=== PATIENT | female | born 1965 | race African-American/Black ===

== ENCOUNTER 2022-05-07 09:58 | Outpatient (CLI) | payer OTHER | END 2022-05-07 09:59 | disposition home or self-care (01) | LOC: CSHWCC 09:58 | PROVIDERS: ATTEND Nurse Practitioner Family | DX: T81.89XD Other complications of procedures, not elsewhere classified, subsequent encounter (principal) | CPT/HCPCS: 97139; G0463; 99212 ==

== ENCOUNTER 2022-05-07 10:40 | Inpatient (IN) | payer OTHER ==
[~2022-05-07 10:40] MED LIST: Iopamidol 300 61% 100 ML VIAL FS ONE
[2022-05-07 11:26] LABS: #Eosinphils 0.1 10x3/uL (0.0-0.5); #Monocytes 1.2 10x3/uL (0.0-1.1); #Neutrophils 6.3 10x3/uL (1.5-8.4); %Basophils 0.2 % (0.0-2.0); %Eosinophils 0.7 % (0.0-6.0); %Lymphocytes 15.8 % (18.0-47.0); %Monocytes 13.3 % (0.0-10.0); %Neutrophils 69.1 % (40.0-75.0); Hemoglobin 8.6 g/dL (12.0-15.5); Mean Corpuscular HGB CONC 32.1 g/dL (32.0-36.0); Mean Corpuscular Volume 93.4 fl (81.6-98.3); Mean Platelet Volume 10.6 fl (7.4-10.4); Platelet Count 180 10x3/uL (150-450); RBC Distribution Width 16.4 % (11.5-14.5); Red Blood Cell (RBC) Count 2.87 10x6/uL (3.90-5.03); White Blood Cell (WBC) Count 9.1 10x3/uL (3.5-10.5)
[2022-05-07 11:43] LABS: INR-International Normal Ratio 1.1; PTT 27.9 sec (22.0-33.0); Prothrombin Time 11.6 sec (9.5-12.1)
[2022-05-07 11:47] LABS: ALT (SGPT) 8 U/L (8-55); AST (SGOT) 18 U/L (5-34); Albumin 2.7 g/dL (3.5-5.0); Alkaline Phosphatase 112 U/L (40-110); Anion Gap 20 mmol/L (10-20); BUN (Urea Nitrogen) 31 mg/dL (9.8-20.1); Bilirubin, Total 0.6 mg/dL (0.2-1.2); Calc. Creatinine Clearance 0 mL/min (70-130); Calcium 8.8 mg/dL (7.8-10.44); Carbon Dioxide 28 mmol/L (22-29); Chloride 96 mmol/L (98-107); Estimated GFR 6; Globulin 3.6 g/dL (2.4-3.5); Glucose 68 mg/dL (70-105); Lipase 10 U/L (8-78); Potassium 4.9 mmol/L (3.5-5.1); Protein, Total 6.3 g/dL (6.0-8.3); Sodium 139 mmol/L (136-145)
[2022-05-07] MEDS ORDERED: methylPREDNISolone Sod Succ 40 MG VIAL ONE (12:18)
[2022-05-07] MEDS ORDERED: Cefepime 1 GM VIAL ONE (12:18)
[2022-05-07] MEDS ORDERED: diphenhydrAMINE 50 MG/ML VIAL ONE (12:18)
[2022-05-07] MEDS ORDERED: Famotidine/PF 20 mg/2ml Vial ONE (12:19)
[2022-05-07] MEDS ORDERED: Vancomycin 1.5 GRAM/300 ML BAG 1.5 GM in Premix Bag 1 BAG IVPB SCH (13:15)
[2022-05-07] MEDS ORDERED: Metoprolol Tartrate 5 MG/5 ML VIAL ONE (15:20)
[2022-05-07] MEDS ORDERED: Calcium Carbonate 500 MG ChewTAB PO PRN (18:04)
[2022-05-07] MEDS ORDERED: Polyethylene Glycol 3350 17 GM Packet PO PRN (18:10)
[2022-05-07 18:46] LABS: Troponin I 0.069 ng/mL (< 0.028)
[2022-05-07] MEDS ORDERED: Digoxin 0.5 MG/2 ML AMP SLOW IVP SCH (21:15)
[2022-05-07] MEDS: Metoprolol Tartrate 25 MG TAB PO SCH (22:03)
[2022-05-07 22:34] LABS: Troponin I 0.063 ng/mL (< 0.028)
[2022-05-08 03:22] VITALS: BMI 31.4
[2022-05-08 06:43] LABS: #Monocytes 0.7 10x3/uL (0.0-1.1); #Neutrophils 6.4 10x3/uL (1.5-8.4); %Basophils 0.1 % (0.0-2.0); %Lymphocytes 18.2 % (18.0-47.0); %Monocytes 7.8 % (0.0-10.0); %Neutrophils 73.2 % (40.0-75.0); Hemoglobin 8.2 g/dL (12.0-15.5); Mean Corpuscular HGB CONC 31.9 g/dL (32.0-36.0); Mean Corpuscular Hemoglobin 29.4 pg (27.0-33.0); Mean Corpuscular Volume 92.1 fl (81.6-98.3); Mean Platelet Volume 11.2 fl (7.4-10.4); Platelet Count 215 10x3/uL (150-450); Red Blood Cell (RBC) Count 2.79 10x6/uL (3.90-5.03); White Blood Cell (WBC) Count 8.8 10x3/uL (3.5-10.5)
[2022-05-08 06:47] LABS: Anion Gap 23 mmol/L (10-20); BUN (Urea Nitrogen) 42 mg/dL (9.8-20.1); Calc. Creatinine Clearance 11 mL/min (70-130); Calcium 8.5 mg/dL (7.8-10.44); Carbon Dioxide 23 mmol/L (22-29); Chloride 97 mmol/L (98-107); Estimated GFR 6; Glucose 100 mg/dL (70-105); Magnesium 1.9 mg/dL (1.6-2.6); Potassium 5.2 mmol/L (3.5-5.1); Sodium 138 mmol/L (136-145)
[2022-05-08] MEDS ORDERED: Apixaban 2.5 MG TAB PO SCH (09:00)
[2022-05-08 09:24] LABS: SARS-CoV-2 IgG Spike Ab Interp Reactive (NonReactive); SARS-CoV-2 IgG Spike Conc/Indx 9783.3 AU/mL (0.00-50.0)
[2022-05-08] MEDS: Aspirin Chewable 81 MG TAB PO SCH (09:30)
[2022-05-08] MEDS: Metoprolol Tartrate 25 MG TAB PO SCH (09:31)
[2022-05-08] MEDS: Sevelamer Carbonate 800 MG TAB PO SCH ×2 (09:31→21:56)
[2022-05-08] MEDS ORDERED: Docusate 100 MG CAP PO PRN (09:35)
[2022-05-08] MEDS: HYDROcodone/Acetaminophen 5/325 mg Tablet PO PRN ×2 (10:50→21:56)
[2022-05-08] MEDS ORDERED: Epoetin (ESRD) 10,000 UNITS/ML VIAL SC SCH (12:00)
[2022-05-08] MEDS ORDERED: Albumin 25% 25 GM/100 ML BOT IVPB SCH (17:00)
[2022-05-08 19:11] LABS: HBSAg Index 0.18 S/CO (0-0.99); Hep B Surf Ag Non-Reactive S/CO (NonReactive)
[2022-05-08] MEDS ORDERED: Metoprolol Tartrate 25 MG TAB PO SCH (21:00)
[2022-05-08] MEDS: Ondansetron PF 4 MG/2 ML Vial IVP PRN (22:24)
[2022-05-09] MEDS: Aspirin Chewable 81 MG TAB PO SCH (08:11)
[2022-05-09] MEDS: Docusate 100 MG CAP PO SCH (08:11)
[2022-05-09] MEDS: Sevelamer Carbonate 800 MG TAB PO SCH ×2 (08:12→15:42)
[2022-05-09] MEDS: Digoxin 0.125 MG TAB PO SCH (08:12)
[2022-05-09] MEDS ORDERED: Metoprolol Tartrate 25 MG TAB PO SCH (09:00)
[2022-05-09 16:29] LABS: HBSAB Concentration 2422.59 mIU/mL; Hep B Surf AB Reactive (NonReactive)
[2022-05-09] MEDS ORDERED: Sodium Chloride 0.9% 250 ML IV SCH (17:00)
[2022-05-09] MEDS: Albumin 25% 25 GM/100 ML BOT IVPB SCH ×2 (17:10→22:15)
[2022-05-09] MEDS ORDERED: Sodium Chloride 0.9% 250 ML 250 ML IV SCH (17:15)
[2022-05-10] MEDS: Albumin 25% 25 GM/100 ML BOT IVPB SCH ×2 (05:17→14:04)
[2022-05-10] MEDS: HYDROcodone/Acetaminophen 5/325 mg Tablet PO PRN (05:27)
[2022-05-10 07:00] LABS: #Monocytes 1.3 10x3/uL (0.0-1.1); #Neutrophils 9.3 10x3/uL (1.5-8.4); %Basophils 0.1 % (0.0-2.0); %Eosinophils 0.3 % (0.0-6.0); %Lymphocytes 19.5 % (18.0-47.0); %Monocytes 9.7 % (0.0-10.0); Hemoglobin 7.1 g/dL (12.0-15.5); Mean Corpuscular HGB CONC 32.3 g/dL (32.0-36.0); Mean Corpuscular Hemoglobin 30.2 pg (27.0-33.0); Mean Corpuscular Volume 93.6 fl (81.6-98.3); Mean Platelet Volume 10.7 fl (7.4-10.4); Platelet Count 229 10x3/uL (150-450); RBC Distribution Width 16.4 % (11.5-14.5); Red Blood Cell (RBC) Count 2.35 10x6/uL (3.90-5.03); White Blood Cell (WBC) Count 13.8 10x3/uL (3.5-10.5)
[2022-05-10 07:07] LABS: Anion Gap 16 mmol/L (10-20); BUN (Urea Nitrogen) 29 mg/dL (9.8-20.1); Calc. Creatinine Clearance 13 mL/min (70-130); Calcium 8.6 mg/dL (7.8-10.44); Carbon Dioxide 28 mmol/L (22-29); Chloride 100 mmol/L (98-107); Estimated GFR 7; Glucose 73 mg/dL (70-105); Potassium 4.4 mmol/L (3.5-5.1); Sodium 140 mmol/L (136-145)
[2022-05-10] MEDS: Sevelamer Carbonate 800 MG TAB PO SCH ×2 (08:01→20:08)
[2022-05-10] MEDS: Digoxin 0.125 MG TAB PO SCH (08:01)
[2022-05-10] MEDS: Aspirin Chewable 81 MG TAB PO SCH (08:02)
[2022-05-10] MEDS: Docusate 100 MG CAP PO SCH (08:02)
[2022-05-10] MEDS ORDERED: Iopamidol 300 61% 100 ML VIAL FS ONE (09:11)
[2022-05-10] MEDS: Morphine 2 MG/ML VIAL SLOW IVP PRN (13:30)
[2022-05-10] MEDS ORDERED: Vancomycin Hemodialysis Sliding Scale FS SCH (14:00)
[2022-05-10] MEDS ORDERED: Famotidine/PF 20 mg/2ml Vial SLOW IVP SCH (14:15)
[2022-05-10] MEDS ORDERED: diphenhydrAMINE 50 MG/ML VIAL IVP SCH (14:15)
[2022-05-10] MEDS ORDERED: Piperacillin/Tazobactam 3.375 GM in Sodium Chloride 0.9% 100 ML IVPB SCH (14:30)
[2022-05-10] MEDS ORDERED: methylPREDNISolone Sod Succ 40 MG VIAL IVP SCH ×2 (14:30→18:30)
[2022-05-10 15:18] LABS: Vancomycin, Random 9.5 ug/mL (See Comment)
[2022-05-10] MEDS: Piperacillin/Tazobactam 3.375 GM in Sodium Chloride 0.9% 100 ML IVPB SCH (18:11)
[2022-05-10] MEDS ORDERED: Vancomycin 1 GM in Premix Bag 1 BAG IVPB PRN (21:00)
[2022-05-10] MEDS ORDERED: Vancomycin HCl 750 MG in Sodium Chloride 0.9% 250 ML 250 ML IVPB SCH (21:00)
[2022-05-11 04:18] LABS: Anion Gap 17 mmol/L (10-20); BUN (Urea Nitrogen) 16 mg/dL (9.8-20.1); Calc. Creatinine Clearance 21 mL/min (70-130); Calcium 8.7 mg/dL (7.8-10.44); Carbon Dioxide 26 mmol/L (22-29); Chloride 101 mmol/L (98-107); Estimated GFR 12; Glucose 126 mg/dL (70-105); Potassium 4.5 mmol/L (3.5-5.1); Sodium 139 mmol/L (136-145)
[2022-05-11 04:42] LABS: #Monocytes 0.2 10x3/uL (0.0-1.1); #Neutrophils 9.4 10x3/uL (1.5-8.4); %Basophils 0.2 % (0.0-2.0); %Lymphocytes 12.2 % (18.0-47.0); %Monocytes 1.8 % (0.0-10.0); %Neutrophils 83.1 % (40.0-75.0); Hemoglobin 7.3 g/dL (12.0-15.5); Mean Corpuscular HGB CONC 30.9 g/dL (32.0-36.0); Mean Corpuscular Hemoglobin 29.4 pg (27.0-33.0); Mean Corpuscular Volume 95.2 fl (81.6-98.3); Mean Platelet Volume 10.8 fl (7.4-10.4); Platelet Count 236 10x3/uL (150-450); RBC Distribution Width 16.4 % (11.5-14.5); Red Blood Cell (RBC) Count 2.48 10x6/uL (3.90-5.03); White Blood Cell (WBC) Count 11.3 10x3/uL (3.5-10.5)
[2022-05-11] MEDS: Piperacillin/Tazobactam 3.375 GM in Sodium Chloride 0.9% 100 ML IVPB SCH ×2 (05:32→19:01)
[2022-05-11] MEDS: Aspirin Chewable 81 MG TAB PO SCH (08:33)
[2022-05-11] MEDS: Sevelamer Carbonate 800 MG TAB PO SCH ×3 (08:33→19:14)
[2022-05-11] MEDS: Docusate 100 MG CAP PO SCH (08:34)
[2022-05-11] MEDS: Digoxin 0.125 MG TAB PO SCH (08:34)
[2022-05-11 13:13] LABS: Vancomycin, Random 20.6 ug/mL (See Comment)
[2022-05-11] MEDS: Morphine 2 MG/ML VIAL SLOW IVP PRN (16:51)
[2022-05-12] MEDS: HYDROcodone/Acetaminophen 5/325 mg Tablet PO PRN (00:07)
[2022-05-12 04:27] LABS: Anion Gap 16 mmol/L (10-20); BUN (Urea Nitrogen) 17 mg/dL (9.8-20.1); Calc. Creatinine Clearance 25 mL/min (70-130); Calcium 8.7 mg/dL (7.8-10.44); Carbon Dioxide 29 mmol/L (22-29); Chloride 101 mmol/L (98-107); Estimated GFR 15; Glucose 75 mg/dL (70-105); Potassium 3.7 mmol/L (3.5-5.1); Sodium 142 mmol/L (136-145)
[2022-05-12 04:28] LABS: #Monocytes 1.3 10x3/uL (0.0-1.1); #Neutrophils 6.8 10x3/uL (1.5-8.4); %Basophils 0.3 % (0.0-2.0); %Eosinophils 0.3 % (0.0-6.0); %Lymphocytes 20.2 % (18.0-47.0); %Monocytes 11.8 % (0.0-10.0); %Neutrophils 63.8 % (40.0-75.0); Hemoglobin 7.4 g/dL (12.0-15.5); Mean Corpuscular HGB CONC 31.9 g/dL (32.0-36.0); Mean Corpuscular Volume 93.9 fl (81.6-98.3); Mean Platelet Volume 10.3 fl (7.4-10.4); Platelet Count 326 10x3/uL (150-450); RBC Distribution Width 16.8 % (11.5-14.5); Red Blood Cell (RBC) Count 2.47 10x6/uL (3.90-5.03); White Blood Cell (WBC) Count 10.7 10x3/uL (3.5-10.5)
[2022-05-12] MEDS: Piperacillin/Tazobactam 3.375 GM in Sodium Chloride 0.9% 100 ML IVPB SCH ×2 (05:31→16:44)
[2022-05-12] MEDS: Aspirin Chewable 81 MG TAB PO SCH (08:42)
[2022-05-12] MEDS: Docusate 100 MG CAP PO SCH (08:42)
[2022-05-12] MEDS: Digoxin 0.125 MG TAB PO SCH (08:42)
[2022-05-12] MEDS: Sevelamer Carbonate 800 MG TAB PO SCH ×2 (08:43→16:44)
[2022-05-13] MEDS ORDERED: Piperacillin/Tazobactam 3.375 GM VIAL ONE (04:47)
[2022-05-13 04:57] LABS: Hemoglobin 8.2 g/dL (12.0-15.5); Mean Corpuscular HGB CONC 30.9 g/dL (32.0-36.0); Mean Corpuscular Hemoglobin 29.3 pg (27.0-33.0); Mean Corpuscular Volume 94.6 fl (81.6-98.3); Mean Platelet Volume 10.1 fl (7.4-10.4); Platelet Count 410 10x3/uL (150-450); White Blood Cell (WBC) Count 13.6 10x3/uL (3.5-10.5)
[2022-05-13 05:01] LABS: Anion Gap 15 mmol/L (10-20); BUN (Urea Nitrogen) 24 mg/dL (9.8-20.1); Calc. Creatinine Clearance 17 mL/min (70-130); Calcium 8.6 mg/dL (7.8-10.44); Carbon Dioxide 28 mmol/L (22-29); Chloride 101 mmol/L (98-107); Estimated GFR 10; Glucose 76 mg/dL (70-105); Potassium 4.2 mmol/L (3.5-5.1); Sodium 140 mmol/L (136-145)
[2022-05-13 05:30] LABS: MDiff Complete? YES
[2022-05-13 05:33] LABS: Band 5 % (5-11); Lymphocytes 16 % (21-51); Monocytes 9 % (0-10); Myelocyte 3 % (0-0); Neutrophil 67 % (42-75)
[2022-05-13 05:34] LABS: Toxic Granulation MODERATE
[2022-05-13 05:35] LABS: Platelet Morphology Comment Appears Increased; Vacuoles SLIGHT
[2022-05-13] MEDS: Piperacillin/Tazobactam 3.375 GM in Sodium Chloride 0.9% 100 ML IVPB SCH ×2 (05:36→18:43)
[2022-05-13 07:54] LABS: Vancomycin, Random 15.7 ug/mL (See Comment)
[2022-05-13] MEDS: Digoxin 0.125 MG TAB PO SCH (08:50)
[2022-05-13] MEDS: Sevelamer Carbonate 800 MG TAB PO SCH ×3 (08:51→17:33)
[2022-05-13] MEDS: Docusate 100 MG CAP PO SCH ×2 (08:51)
[2022-05-13] MEDS ORDERED: Sodium Bicarbonate 2.5 MEQ/5 ML VIAL ONE (11:11)
[2022-05-13] MEDS ORDERED: Lidocaine 1% PF 5 ML VIAL ONE (11:11)
[2022-05-13] MEDS ORDERED: Lidocaine 2% Jelly 5 ML TUBE TOP PRN (13:01)
[2022-05-13] MEDS: HYDROcodone/Acetaminophen 5/325 mg Tablet PO PRN ×3 (13:32→22:40)
[2022-05-13] MEDS: Ondansetron PF 4 MG/2 ML Vial IVP PRN (15:52)
[2022-05-13] MEDS ORDERED: Vancomycin HCl 500 MG in Sodium Chloride 0.9% 100 ML IVPB SCH (17:00)
[2022-05-14 04:49] LABS: Anion Gap 15 mmol/L (10-20); BUN (Urea Nitrogen) 15 mg/dL (9.8-20.1); Calc. Creatinine Clearance 21 mL/min (70-130); Calcium 8.5 mg/dL (7.8-10.44); Carbon Dioxide 23 mmol/L (22-29); Chloride 103 mmol/L (98-107); Estimated GFR 12; Glucose 68 mg/dL (70-105); Potassium 4.3 mmol/L (3.5-5.1); Sodium 137 mmol/L (136-145)
[2022-05-14] MEDS: HYDROcodone/Acetaminophen 5/325 mg Tablet PO PRN ×3 (05:56→21:35)
[2022-05-14] MEDS: Piperacillin/Tazobactam 3.375 GM in Sodium Chloride 0.9% 100 ML IVPB SCH ×2 (05:57→17:41)
[2022-05-14 06:56] LABS: Hemoglobin 8.2 g/dL (12.0-15.5); Mean Corpuscular HGB CONC 31.9 g/dL (32.0-36.0); Mean Corpuscular Hemoglobin 29.9 pg (27.0-33.0); Mean Corpuscular Volume 93.8 fl (81.6-98.3); Mean Platelet Volume 9.8 fl (7.4-10.4); Platelet Count 412 10x3/uL (150-450); Red Blood Cell (RBC) Count 2.74 10x6/uL (3.90-5.03); White Blood Cell (WBC) Count 17.5 10x3/uL (3.5-10.5)
[2022-05-14 07:14] LABS: MDiff Complete? YES
[2022-05-14 07:17] LABS: Band 6 % (5-11); Lymphocytes 7 % (21-51); Monocytes 11 % (0-10); Myelocyte 2 % (0-0); Neutrophil 74 % (42-75); Nucleated RBC 1 % (0)
[2022-05-14 07:19] LABS: Polychromasia SLIGHT = 2-3 cells (100X) (0-2/hpf); Vacuoles SLIGHT
[2022-05-14 07:20] LABS: Platelet Morphology Comment Appears Increased
[2022-05-14] MEDS: Sevelamer Carbonate 800 MG TAB PO SCH ×2 (08:28→16:13)
[2022-05-14] MEDS: Digoxin 0.125 MG TAB PO SCH (08:28)
[2022-05-14] MEDS: Docusate 100 MG CAP PO SCH (08:29)
[2022-05-15] MEDS: Piperacillin/Tazobactam 3.375 GM in Sodium Chloride 0.9% 100 ML IVPB SCH ×2 (06:11→17:54)
[2022-05-15] MEDS: HYDROcodone/Acetaminophen 5/325 mg Tablet PO PRN ×2 (06:12→08:36)
[2022-05-15 07:08] LABS: Hemoglobin 8.4 g/dL (12.0-15.5); Mean Corpuscular HGB CONC 31.1 g/dL (32.0-36.0); Mean Corpuscular Hemoglobin 29.6 pg (27.0-33.0); Mean Corpuscular Volume 95.1 fl (81.6-98.3); Mean Platelet Volume 9.4 fl (7.4-10.4); Platelet Count 509 10x3/uL (150-450); RBC Distribution Width 17.2 % (11.5-14.5); Red Blood Cell (RBC) Count 2.84 10x6/uL (3.90-5.03); White Blood Cell (WBC) Count 21.2 10x3/uL (3.5-10.5)
[2022-05-15 07:12] LABS: Vancomycin, Random 18.8 ug/mL (See Comment)
[2022-05-15 07:15] LABS: Anion Gap 17 mmol/L (10-20); BUN (Urea Nitrogen) 21 mg/dL (9.8-20.1); Calc. Creatinine Clearance 15 mL/min (70-130); Calcium 8.6 mg/dL (7.8-10.44); Carbon Dioxide 25 mmol/L (22-29); Chloride 101 mmol/L (98-107); Estimated GFR 8; Glucose 78 mg/dL (70-105); Potassium 4.2 mmol/L (3.5-5.1); Sodium 139 mmol/L (136-145)
[2022-05-15 07:58] LABS: MDiff Complete? YES
[2022-05-15 08:02] LABS: Band 4 % (5-11); Lymphocytes 20 % (21-51); Metamyelocyte 2 % (0-0); Monocytes 6 % (0-10); Myelocyte 2 % (0-0); Neutrophil 66 % (42-75)
[2022-05-15 08:04] LABS: Anisocytosis SLIGHT = 6-15 cells (100X) (0-5/hpf); Ovalocytes SLIGHT = 2-5 cells (100X) (0-1/hpf)
[2022-05-15 08:05] LABS: Platelet Morphology Comment Appears Decreased
[2022-05-15 08:06] LABS: Large Platelets SLIGHT
[2022-05-15] MEDS: Sevelamer Carbonate 800 MG TAB PO SCH ×2 (08:34→14:55)
[2022-05-15] MEDS: Digoxin 0.125 MG TAB PO SCH (08:36)
[2022-05-15] MEDS: Apixaban 2.5 MG TAB PO SCH ×2 (08:36→22:38)
[2022-05-15] MEDS: Docusate 100 MG CAP PO SCH (08:36)
[2022-05-15] MEDS ORDERED: Heparin 10,000 UNITS/ 10 ML VIAL FS PRN (09:36)
[2022-05-15] MEDS ORDERED: EPOETIN ALFA-EPBX (ESRD) 10,000 UNIT/ML VIAL SC SCH (14:00)
[2022-05-15] MEDS: Ondansetron PF 4 MG/2 ML Vial IVP PRN (14:58)
[2022-05-15] MEDS: Morphine 2 MG/ML VIAL SLOW IVP PRN (15:04)
[2022-05-15] MEDS ORDERED: Vancomycin HCl 500 MG in Sodium Chloride 0.9% 100 ML IVPB SCH (17:00)
[2022-05-16 05:21] LABS: #Basophils 0.1 10x3/uL (0.0-0.2); #Monocytes 2.1 10x3/uL (0.0-1.1); #Neutrophils 11.7 10x3/uL (1.5-8.4); %Basophils 0.5 % (0.0-2.0); %Eosinophils 0.2 % (0.0-6.0); %Lymphocytes 14.3 % (18.0-47.0); %Monocytes 12.4 % (0.0-10.0); Hemoglobin 7.9 g/dL (12.0-15.5); Mean Corpuscular HGB CONC 30.6 g/dL (32.0-36.0); Mean Corpuscular Volume 94.9 fl (81.6-98.3); Mean Platelet Volume 9.6 fl (7.4-10.4); Platelet Count 478 10x3/uL (150-450); RBC Distribution Width 17.5 % (11.5-14.5); Red Blood Cell (RBC) Count 2.72 10x6/uL (3.90-5.03); White Blood Cell (WBC) Count 17.1 10x3/uL (3.5-10.5)
[2022-05-16] MEDS: Piperacillin/Tazobactam 3.375 GM in Sodium Chloride 0.9% 100 ML IVPB SCH (05:24)
[2022-05-16 05:47] LABS: Anion Gap 15 mmol/L (10-20); BUN (Urea Nitrogen) 10 mg/dL (9.8-20.1); Calc. Creatinine Clearance 22 mL/min (70-130); Calcium 8.3 mg/dL (7.8-10.44); Carbon Dioxide 26 mmol/L (22-29); Chloride 102 mmol/L (98-107); Estimated GFR 13; Glucose 66 mg/dL (70-105); Potassium 3.8 mmol/L (3.5-5.1); Sodium 139 mmol/L (136-145)
[2022-05-16] MEDS: Digoxin 0.125 MG TAB PO SCH (10:38)
[2022-05-16] MEDS: Sevelamer Carbonate 800 MG TAB PO SCH ×2 (10:38→18:26)
[2022-05-16] MEDS: Aspirin Chewable 81 MG TAB PO SCH (10:38)
[2022-05-16] MEDS: Apixaban 2.5 MG TAB PO SCH ×2 (10:38→21:11)
[2022-05-16] MEDS: Docusate 100 MG CAP PO SCH (10:38)
[2022-05-17 07:19] LABS: Vancomycin, Random 19.1 ug/mL (See Comment)
[2022-05-17] MEDS: HYDROcodone/Acetaminophen 5/325 mg Tablet PO PRN (10:36)
[2022-05-17] MEDS: Aspirin Chewable 81 MG TAB PO SCH (10:38)
[2022-05-17] MEDS: Apixaban 2.5 MG TAB PO SCH ×2 (10:38→21:52)
[2022-05-17] MEDS: Sevelamer Carbonate 800 MG TAB PO SCH ×2 (10:38→18:36)
[2022-05-17] MEDS: Docusate 100 MG CAP PO SCH (10:38)
[2022-05-17] MEDS: Digoxin 0.125 MG TAB PO SCH (10:38)
[2022-05-17] MEDS: Lidocaine 2% 6 ML SYR TOP PRN (13:10)
[2022-05-18 04:27] LABS: #Basophils 0.1 10x3/uL (0.0-0.2); #Monocytes 2.3 10x3/uL (0.0-1.1); %Basophils 0.4 % (0.0-2.0); %Eosinophils 0.2 % (0.0-6.0); %Monocytes 14.9 % (0.0-10.0); %Neutrophils 66.1 % (40.0-75.0); Hemoglobin 8.2 g/dL (12.0-15.5); Mean Corpuscular HGB CONC 30.8 g/dL (32.0-36.0); Mean Corpuscular Hemoglobin 29.5 pg (27.0-33.0); Mean Corpuscular Volume 95.7 fl (81.6-98.3); Mean Platelet Volume 9.3 fl (7.4-10.4); Platelet Count 451 10x3/uL (150-450); Red Blood Cell (RBC) Count 2.78 10x6/uL (3.90-5.03); White Blood Cell (WBC) Count 15.2 10x3/uL (3.5-10.5)
[2022-05-18 04:34] LABS: Anion Gap 14 mmol/L (10-20); BUN (Urea Nitrogen) 7 mg/dL (9.8-20.1); Calc. Creatinine Clearance 25 mL/min (70-130); Carbon Dioxide 28 mmol/L (22-29); Chloride 101 mmol/L (98-107); Potassium 3.5 mmol/L (3.5-5.1); Sodium 139 mmol/L (136-145)
[2022-05-18 04:35] LABS: Calcium 8.5 mg/dL (7.8-10.44); Estimated GFR 15; Glucose 94 mg/dL (70-105)
[2022-05-18] MEDS: Aspirin Chewable 81 MG TAB PO SCH (10:01)
[2022-05-18] MEDS: Digoxin 0.125 MG TAB PO SCH (10:01)
[2022-05-18] MEDS: Apixaban 2.5 MG TAB PO SCH ×2 (10:01→21:14)
[2022-05-18] MEDS: Sevelamer Carbonate 800 MG TAB PO SCH ×2 (10:01→17:00)
[2022-05-18] MEDS: Docusate 100 MG CAP PO SCH ×2 (10:01→10:03)
[2022-05-18] MEDS: Morphine 2 MG/ML VIAL SLOW IVP PRN (16:47)
[2022-05-18] MEDS: Ondansetron PF 4 MG/2 ML Vial IVP PRN (16:47)
[2022-05-19] MEDS: Sevelamer Carbonate 800 MG TAB PO SCH ×2 (09:30→17:18)
[2022-05-19] MEDS: Apixaban 2.5 MG TAB PO SCH ×2 (09:30→21:08)
[2022-05-19] MEDS: Docusate 100 MG CAP PO SCH (09:30)
[2022-05-19] MEDS: Aspirin Chewable 81 MG TAB PO SCH (09:30)
[2022-05-19] MEDS: Digoxin 0.125 MG TAB PO SCH (09:30)
[2022-05-19 09:40] LABS: Mean Corpuscular HGB CONC 30.3 g/dL (32.0-36.0); Mean Corpuscular Hemoglobin 29.4 pg (27.0-33.0); Mean Corpuscular Volume 97.1 fl (81.6-98.3); Mean Platelet Volume 9.4 fl (7.4-10.4); Platelet Count 429 10x3/uL (150-450); RBC Distribution Width 18.3 % (11.5-14.5); Red Blood Cell (RBC) Count 2.72 10x6/uL (3.90-5.03); White Blood Cell (WBC) Count 23.6 10x3/uL (3.5-10.5)
[2022-05-19 09:58] LABS: Anion Gap 15 mmol/L (10-20); BUN (Urea Nitrogen) 13 mg/dL (9.8-20.1); Calc. Creatinine Clearance 15 mL/min (70-130); Calcium 8.6 mg/dL (7.8-10.44); Carbon Dioxide 28 mmol/L (22-29); Chloride 100 mmol/L (98-107); Estimated GFR 8; Glucose 72 mg/dL (70-105); Potassium 3.7 mmol/L (3.5-5.1); Sodium 139 mmol/L (136-145)
[2022-05-19 11:23] LABS: Lymphocytes 17 % (21-51); Metamyelocyte 1 % (0-0); Monocytes 14 % (0-10); Myelocyte 1 % (0-0); Neutrophil 60 % (42-75); Reactive Lymphocytes 1 % (0-10)
[2022-05-19 11:24] LABS: Anisocytosis MODERATE=16-30 cells (100X) (0-5/hpf); Band 6 % (5-11); Macrocytosis SLIGHT = 6-15 cells (100X) (0-5/hpf); Microcytosis SLIGHT = 6-15 cells (100X) (0-5/hpf); Polychromasia SLIGHT = 2-3 cells (100X) (0-2/hpf)
[2022-05-19 11:25] LABS: Hypersemented Neutrophil SLIGHT; Hypochromia SLIGHT = 6-15 cells (100X) (0-5/hpf); Platelet Morphology Comment Appears Increased; Toxic Granulation MODERATE
[2022-05-19 11:26] LABS: MDiff Complete? YES
[2022-05-20] MEDS: Ondansetron PF 4 MG/2 ML Vial IVP PRN ×2 (06:39→21:31)
[2022-05-20] MEDS ORDERED: Prochlorperazine Edisylate 5 MG, Admixture Fee 1 EACH in Sodium Chloride 0.9% 50 ML IVPB PRN (08:26)
[2022-05-20 09:25] LABS: Hemoglobin 8.2 g/dL (12.0-15.5); MDiff Complete? YES; Mean Corpuscular HGB CONC 31.1 g/dL (32.0-36.0); Mean Corpuscular Hemoglobin 29.8 pg (27.0-33.0); Mean Platelet Volume 9.1 fl (7.4-10.4); Platelet Count 364 10x3/uL (150-450); RBC Distribution Width 18.6 % (11.5-14.5); Red Blood Cell (RBC) Count 2.75 10x6/uL (3.90-5.03)
[2022-05-20 09:45] LABS: Anion Gap 14 mmol/L (10-20); BUN (Urea Nitrogen) 24 mg/dL (9.8-20.1); Calc. Creatinine Clearance 12 mL/min (70-130); Carbon Dioxide 28 mmol/L (22-29); Chloride 100 mmol/L (98-107); Estimated GFR 6; Glucose 83 mg/dL (70-105); Potassium 3.8 mmol/L (3.5-5.1); Sodium 138 mmol/L (136-145)
[2022-05-20 09:51] LABS: Lymphocytes 11 % (21-51)
[2022-05-20 09:52] LABS: Band 3 % (5-11); Neutrophil 73 % (42-75)
[2022-05-20 09:54] LABS: Monocytes 13 % (0-10); Platelet Morphology Comment Appears Adequate
[2022-05-20 09:56] LABS: Hypochromia SLIGHT = 6-15 cells (100X) (0-5/hpf); Stomatocytes SLIGHT = 2-5 cells (100X) (0-1/hpf)
[2022-05-20] MEDS: Apixaban 2.5 MG TAB PO SCH ×2 (10:26→21:31)
[2022-05-20] MEDS: Sevelamer Carbonate 800 MG TAB PO SCH ×2 (10:26→17:39)
[2022-05-20] MEDS: Digoxin 0.125 MG TAB PO SCH (10:27)
[2022-05-20] MEDS: Docusate 100 MG CAP PO SCH (10:27)
[2022-05-20] MEDS: Aspirin Chewable 81 MG TAB PO SCH (10:27)
[2022-05-20] MEDS: Lidocaine 2% 6 ML SYR TOP PRN (10:41)
[2022-05-20] MEDS: Morphine 2 MG/ML VIAL SLOW IVP PRN (10:41)
[2022-05-21 05:57] LABS: #Basophils 0.1 10x3/uL (0.0-0.2); #Monocytes 2.7 10x3/uL (0.0-1.1); %Basophils 0.3 % (0.0-2.0); %Eosinophils 0.2 % (0.0-6.0); %Lymphocytes 14.2 % (18.0-47.0); %Monocytes 13.6 % (0.0-10.0); %Neutrophils 70.4 % (40.0-75.0); Hemoglobin 8.2 g/dL (12.0-15.5); Mean Corpuscular HGB CONC 31.1 g/dL (32.0-36.0); Mean Corpuscular Hemoglobin 29.7 pg (27.0-33.0); Mean Corpuscular Volume 95.7 fl (81.6-98.3); Mean Platelet Volume 9.5 fl (7.4-10.4); Platelet Count 375 10x3/uL (150-450); RBC Distribution Width 18.6 % (11.5-14.5); Red Blood Cell (RBC) Count 2.76 10x6/uL (3.90-5.03); White Blood Cell (WBC) Count 19.8 10x3/uL (3.5-10.5)
[2022-05-21 06:15] LABS: Anion Gap 17 mmol/L (10-20); BUN (Urea Nitrogen) 34 mg/dL (9.8-20.1); Calc. Creatinine Clearance 10 mL/min (70-130); Calcium 8.7 mg/dL (7.8-10.44); Carbon Dioxide 27 mmol/L (22-29); Chloride 100 mmol/L (98-107); Estimated GFR 5; Glucose 72 mg/dL (70-105); Potassium 4.2 mmol/L (3.5-5.1); Sodium 140 mmol/L (136-145)
[2022-05-21 09:01] LABS: #Basophils 0.1 10x3/uL (0.0-0.2); #Monocytes 2.5 10x3/uL (0.0-1.1); #Neutrophils 13.2 10x3/uL (1.5-8.4); %Basophils 0.3 % (0.0-2.0); %Eosinophils 0.1 % (0.0-6.0); %Lymphocytes 13.7 % (18.0-47.0); %Monocytes 13.5 % (0.0-10.0); %Neutrophils 71.2 % (40.0-75.0); Hemoglobin 8.3 g/dL (12.0-15.5); Mean Corpuscular HGB CONC 30.4 g/dL (32.0-36.0); Mean Corpuscular Hemoglobin 29.5 pg (27.0-33.0); Mean Corpuscular Volume 97.2 fl (81.6-98.3); Mean Platelet Volume 9.2 fl (7.4-10.4); Platelet Count 358 10x3/uL (150-450); RBC Distribution Width 18.6 % (11.5-14.5); Red Blood Cell (RBC) Count 2.81 10x6/uL (3.90-5.03); White Blood Cell (WBC) Count 18.5 10x3/uL (3.5-10.5)
[2022-05-21 09:18] LABS: Anion Gap 15 mmol/L (10-20); BUN (Urea Nitrogen) 36 mg/dL (9.8-20.1); Calc. Creatinine Clearance 10 mL/min (70-130); Calcium 8.6 mg/dL (7.8-10.44); Carbon Dioxide 27 mmol/L (22-29); Chloride 101 mmol/L (98-107); Estimated GFR 5; Glucose 70 mg/dL (70-105); Potassium 4.2 mmol/L (3.5-5.1); Sodium 139 mmol/L (136-145)
[2022-05-21] MEDS: Sevelamer Carbonate 800 MG TAB PO SCH ×3 (10:53→18:23)
[2022-05-21] MEDS: Aspirin Chewable 81 MG TAB PO SCH (10:53)
[2022-05-21] MEDS: Apixaban 2.5 MG TAB PO SCH (10:54)
[2022-05-21] MEDS: Docusate 100 MG CAP PO SCH ×2 (10:54→11:00)
[2022-05-21] MEDS: Digoxin 0.125 MG TAB PO SCH (11:14)
[2022-05-21 11:34] VITALS: TEMP 98.2
[2022-05-21 12:42] VITALS: BP 87/56
[2022-05-21] MEDS ORDERED: metroNIDAZOLE 500 MG TAB PO SCH ×2 (13:00→21:00)
[2022-05-21] MEDS ORDERED: Ciprofloxacin 500 MG TAB PO SCH (17:00)
== END 2022-05-21 18:38 | disposition home or self-care (01) | DRG 862 ==
LOC: CSHERS 10:40 → CSHTELE 17:31 → OBSVTOIN 05-08 17:56
PROVIDERS: ADMIT Family Medicine; ATTEND Family Medicine
PROC: 5A1D70Z Performance of Urinary Filtration, Intermittent, Less than 6 Hours Per Day (ICD-10-PCS; 2022-05-08)
PROC: 30233J1 Transfusion of Nonautologous Serum Albumin into Peripheral Vein, Percutaneous Approach (ICD-10-PCS; 2022-05-08)
PROC: 5A1D70Z Performance of Urinary Filtration, Intermittent, Less than 6 Hours Per Day (ICD-10-PCS; 2022-05-10)
PROC: 5A1D70Z Performance of Urinary Filtration, Intermittent, Less than 6 Hours Per Day (ICD-10-PCS; 2022-05-11)
PROC: 0D9W30Z Drainage of Peritoneum with Drainage Device, Percutaneous Approach (ICD-10-PCS; principal; 2022-05-13)
PROC: 5A1D70Z Performance of Urinary Filtration, Intermittent, Less than 6 Hours Per Day (ICD-10-PCS; 2022-05-13)
PROC: 5A1D70Z Performance of Urinary Filtration, Intermittent, Less than 6 Hours Per Day (ICD-10-PCS; 2022-05-15)
PROC: 5A1D70Z Performance of Urinary Filtration, Intermittent, Less than 6 Hours Per Day (ICD-10-PCS; 2022-05-17)
PROC: 5A1D70Z Performance of Urinary Filtration, Intermittent, Less than 6 Hours Per Day (ICD-10-PCS; 2022-05-21)
DX: T81.43XA Infection following a procedure, organ and space surgical site, initial encounter (principal); K65.1 Peritoneal abscess; N18.6 End stage renal disease; I48.92 Unspecified atrial flutter; I12.0 Hypertensive chronic kidney disease with stage 5 chronic kidney disease or end stage renal disease; I95.89 Other hypotension; F31.9 Bipolar disorder, unspecified; E83.39 Other disorders of phosphorus metabolism; Y83.8 Other surgical procedures as the cause of abnormal reaction of the patient, or of later complication, without mention of misadventure at the time of the procedure; I48.91 Unspecified atrial fibrillation; Z88.8 Allergy status to other drugs, medicaments and biological substances; Z79.82 Long term (current) use of aspirin; Z79.899 Other long term (current) drug therapy; Z98.890 Other specified postprocedural states; Z99.2 Dependence on renal dialysis; Z63.1 Problems in relationship with in-laws
CPT/HCPCS: 36415; 36416; 74176; 74177; 77002; 80048; 80053; 80202; 82533; 83605; 83690; 83735; 84443; 84484; 85025; 85610; 85730; 86706; 86769; 87040; 87070; 87340; 90935; 93005; 93010; 96372; 96374; 96375; 97139; G0257; G0378; J0692; J1160; J1200; J1644; J2270; J2405; J2543; J2920; J3370; J3490; J7050; P9047; Q4081; Q5105; Q9967; S0028

== ENCOUNTER 2022-05-30 10:28 | Outpatient (CLI) | payer OTHER | END 2022-05-30 10:29 | disposition home or self-care (01) | LOC: CSHWCC 10:28 | PROVIDERS: ATTEND Nurse Practitioner Family | DX: T81.89XD Other complications of procedures, not elsewhere classified, subsequent encounter (principal) | CPT/HCPCS: 97139; 97605; G0463; 99213 ==

== ENCOUNTER 2022-06-08 18:44 | Emergency (ER) | payer OTHER ==
[2022-06-08 20:09] LABS: ALT (SGPT) 18 U/L (8-55); AST (SGOT) 36 U/L (5-34); Albumin 2.2 g/dL (3.5-5.0); Alkaline Phosphatase 121 U/L (40-110); Anion Gap 16 mmol/L (10-20); BUN (Urea Nitrogen) 33 mg/dL (9.8-20.1); Bilirubin, Total 0.4 mg/dL (0.2-1.2); Calc. Creatinine Clearance 0 mL/min (70-130); Calcium 8.2 mg/dL (7.8-10.44); Carbon Dioxide 29 mmol/L (22-29); Chloride 97 mmol/L (98-107); Estimated GFR 5; Globulin 4.3 g/dL (2.4-3.5); Glucose 78 mg/dL (70-105); Lipase 34 U/L (8-78); Magnesium 2.1 mg/dL (1.6-2.6); Potassium 4.3 mmol/L (3.5-5.1); Protein, Total 6.5 g/dL (6.0-8.3); Sodium 138 mmol/L (136-145)
[2022-06-08 20:10] LABS: Digoxin 4.94 ng/mL (0.8-2.0)
[2022-06-08 20:13] LABS: Troponin I 0.399 ng/mL (< 0.028)
[2022-06-08 20:19] LABS: #Monocytes 1.4 10x3/uL (0.0-1.1); %Basophils 0.3 % (0.0-2.0); %Eosinophils 0.3 % (0.0-6.0); %Lymphocytes 16.2 % (18.0-47.0); %Monocytes 9.8 % (0.0-10.0); %Neutrophils 72.8 % (40.0-75.0); Mean Corpuscular HGB CONC 31.4 g/dL (32.0-36.0); Mean Corpuscular Volume 92.4 fl (81.6-98.3); Mean Platelet Volume 10.7 fl (7.4-10.4); Platelet Count 194 10x3/uL (150-450); RBC Distribution Width 17.2 % (11.5-14.5); Red Blood Cell (RBC) Count 2.76 10x6/uL (3.90-5.03); White Blood Cell (WBC) Count 13.7 10x3/uL (3.5-10.5)
[2022-06-08] MEDS ORDERED: SODIUM CHLORIDE 0.9% IVPB SCH (22:00)
[2022-06-08] MEDS ORDERED: DIGOXIN IMMUNE FAB IVPB SCH (22:00)
== END 2022-06-08 23:33 | disposition short-term general hospital (02) ==
LOC: CSHERS 18:44
DX: T46.0X1A Poisoning by cardiac-stimulant glycosides and drugs of similar action, accidental (unintentional), initial encounter (principal); T82.9XXA Unspecified complication of cardiac and vascular prosthetic device, implant and graft, initial encounter; I48.91 Unspecified atrial fibrillation; I12.0 Hypertensive chronic kidney disease with stage 5 chronic kidney disease or end stage renal disease; N18.6 End stage renal disease; F17.200 Nicotine dependence, unspecified, uncomplicated; Z99.2 Dependence on renal dialysis; Z79.01 Long term (current) use of anticoagulants; Z79.899 Other long term (current) drug therapy
CPT/HCPCS: 71045; 80053; 80162; 83605; 83690; 83735; 83880; 84484; 85025; 93005; 93931; J1162; 96374